=== PATIENT | male | born 1955 | race Caucasian/White ===

== ENCOUNTER 2019-03-28 12:33 | Day surgery (SDC) | payer OTHER, SELFPAY ==
--- NOTE | 2019-03-28 | PATH_ITS ---
[facility] Accession Number: [id number] . 01 Material submitted: . colon - POLYP AT 80CM . 01 Clinical history: . SCREENING COLONOSCOPY . 02 Diagnosis: Colon at 80 cm, Polyp: Colonic mucosa with no diagnostic abnormality, consistent with polypoid redundancy. Negative for serrated lesion, dysplasia or malignancy. Additional step sections examined. MRV 04/01/2019 1408 Local . 02 Electronically signed: . Maikel Bryan MD, PhD, Pathologist NPI- [id number] . 01 Gross description: . POLYP AT 80CM: Received in formalin is 1 fragment(s) of baird, soft tissue measuring 0.3 x 0.2 x 0.2 cm submitted entirely in 1 cassette(s) /QBJ 03/29/2019 0043 Local . 02 Pathologist provided ICD-10: K63.5 . 02 CPT . 731346 Performed at: 01 [facility] [address] [place] [address], [place], [place] [id number] MD Tyler Romano MD Phone: [phone] Performed at: 02 [facility] [address] [place], [place] [id number] MD Leila Redd MD Phone: [phone]
[2019-03-28 13:16] VITALS: BP 139/84; PULSE 101; RESP 16; TEMP 37.2; O2SAT 95; BMI 29.8
[2019-03-28] MEDS: SODIUM CHLORIDE 0.9% 1,000 ML 200 ML IV (13:23)
--- NOTE | 2019-03-28 13:46 | PM.HP.1 ---
History of Present Illness History of Present Illness Date Patient Seen: 03/28/19 Time Patient Seen: 13:53 Chief complaint: [id number] SCREENING COLONOSCOPY Narrative: Patient presents for colorectal screening. They has a prior colonoscopy 10 years ago which was normal.. No personal or family history of colon cancer. On further history denies any recent gastrointestinal symptoms. No nausea, vomiting, abdominal pain, loss of appetite, unexplained weight loss, change in bowel habits, diarrhea, constipation, melena, hematochezia, or bright red blood per rectum. Patient History Medical History (Updated 03/28/19 @ 13:56 by Jin Marino MD) HTN (hypertension) (Acute) Obstructive sleep apnea (Acute) Surgical History (Updated 03/28/19 @ 13:56 by Jin Marino MD) History of appendectomy (Acute) Family & Social History Social History: household members friend(s),none Meds Home Medications and Allergies Home Medications Medication Instructions Recorded Confirmed Type Fish Oil (Fish Oil 500 MG Softgel) 500 mg PO QDAY #0 12/10/12 03/28/19 History albuterol sulfate [Ventolin HFA] 2 puff INH PRN #0 12/10/12 03/28/19 History aspirin 81 mg PO QDAY #0 12/10/12 03/28/19 History fluticasone propion-salmeterol 1 puff INH BID #0 12/10/12 03/28/19 History [Advair Diskus] losartan 100 mg PO QDAY #0 12/10/12 03/28/19 History simvastatin [Zocor] 5 mg PO HS #0 12/10/12 03/28/19 History losartan-hydrochlorothiazide 1 tab PO DAILY 03/28/19 03/28/19 History Allergies Allergy/AdvReac Type Severity Reaction Status Date / Time No Known Drug Allergies Allergy Verified 03/28/19 13:05 Review of Systems Review of Systems ROS Unobtainable: All systems reviewed & are unremarkable except as noted in HPI and below Exam Vital Signs (past 8 hours): - 03/28/19 13:16 Temperature 99.0 F Pulse Rate 101 H Respiratory Rate 16 Blood Pressure 139/84 Pulse Oximetry 95 Oxygen Delivery Method Room Air Narrative Exam Narrative: General-no acute distress, well nourished HEENT-moist mucous membranes, no scleral icterus Neck-supple, no lymphadenopathy Chest- non labored respirations, clear to auscultation bilaterally Cardiac-regular rate no peripheral edema Abdomen-soft, nontender, non distended Extremities-warm, well perfused Neurological-alert and oriented, no focal deficits Assessment & Plan Assessment and plan (1) Screening for colon cancer: Current visit: Yes Status: Acute Assessment & Plan narrative: The patient requires colorectal screening and colonoscopy is recommended. Technical details were discussed. Risks, benefits, alternatives explained. Risks including but not limited to myocardial infarction, aspiration, bleeding, pain, missed lesion, incomplete examination, need for further radiographic studies, colonic perforation, and need for major abdominal surgery were discussed. All questions were answered to their satisfaction, and they are in agreement with this plan.
[2019-03-28] MEDS: fentaNYL 250 MCG/5 ML INJ IV (13:58)
[2019-03-28] MEDS: MIDAZOLAM 5 MG/5 ML VIAL IV (13:59)
--- NOTE | 2019-03-28 14:21 | PM.OP.ENDO ---
Operative Date/Time/Diagnoses Date of procedure: 03/28/19 Time of procedure: 14:21 Pre-op diagnosis: Screening colonoscopy Post-op diagnosis: same Procedure & Clinicians Study performed: Colonoscopy Same procedure as scheduled: Yes Indications: 63-year-old male prior colonoscopy 10 years ago presents for routine screening Surgeon: Jin Marino Procedure Notes SCOAP/Timeout: Performed Procedure in detail: Patient placed in left lateral decubitus position. Time out was performed. Procedural sedation was administered with Versed and Fentanyl. A rectal exam demonstrated no external hemorrhoids no internal masses. Colonoscopy scope was placed into the rectum and advanced through the colon to the cecum. The ileocecal valve was identified. The scope was then slowly withdrawn examining colon thoroughly in all directions. The colonoscopy was notable for the following 1. <1 cm hyperplastic appearing polyp in the transverse colon at 80 cm removed with forceps biopsy 2. Severe sigmoid diverticulosis 3. Quality of prep fair Scope withdrawal time: 7 Sedation minutes: 18 Findings: diverticulosis and polyp Specimen(s): other (Polyp at 80 cm) Complications: none Impression: Diverticulosis, polyp Post-procedure Recommendations: Colonscopy in 10 years Disposition: same day surgery
[2019-03-28 14:23] VITALS: BP 104/74; PULSE 74; RESP 18; TEMP 36.4; O2SAT 93
[2019-03-28 14:28] VITALS: BP 111/75; PULSE 87; RESP 17; O2SAT 95
[2019-03-28 14:33] VITALS: BP 116/76; PULSE 82; RESP 18; TEMP 36.4; O2SAT 95
[2019-03-28 14:42] VITALS: BP 122/79; PULSE 80; RESP 16; TEMP 36.3; O2SAT 95
== END 2019-03-28 14:54 | disposition home or self-care (01) ==
PROVIDERS: Family Provider Internal Medicine; PCP Internal Medicine; Visit Provider Surgery
PROC: 0DJD8ZZ Inspection of Lower Intestinal Tract, Via Natural or Artificial Opening Endoscopic (ICD-10-PCS; CPT 45378; principal; 2019-03-28 14:00)
DX: Z12.11 Encounter for screening for malignant neoplasm of colon (principal); I10 Essential (primary) hypertension; G47.33 Obstructive sleep apnea (adult) (pediatric); K57.30 Diverticulosis of large intestine without perforation or abscess without bleeding; K63.5 Polyp of colon
CPT/HCPCS: 45380; 99152; J2250; J3010

== ENCOUNTER 2023-02-22 08:49 | Observation (INO) | payer MEDICARE, OTHER, SELFPAY ==
[2023-02-22] VITALS (16 sets, daily range): BP systolic 120–149; BP diastolic 59–72; PULSE 54–76; RESP 12–21; TEMP 35.7–36.6; O2SAT 92–98; BMI 26.6
--- NOTE | 2023-02-22 | DI.MRI.S_ITS ---
PROCEDURE: MR HEAD/BRAIN WO CON INDICATIONS: slurred speech r/o CVA TECHNIQUE: Noncontrast axial T1 spin echo, axial T2 fast spin echo, sagittal and axial FLAIR, coronal T2 fast spin echo, axial gradient echo, axial diffusion and ADC through the brain. COMPARISON: [facility], CT, CT ANGIO HEAD AND NECK, 02/22/2023, 9:56. [facility], CT, CT HEAD/BRAIN WO CON, 02/22/2023, 9:56. FINDINGS: Image quality: Excellent. CSF Spaces: Basal cisterns are patent. No extra-axial fluid collections. Ventricles are normal in size and shape. Brain: No intracranial masses or hemorrhage. Blake/white matter interface is normal. Brainstem appears normal. Diffusion-weighted images demonstrate no acute ischemic insult. No chronic ischemic insults. Normal intravascular flow voids are present. Skull and face: Calvarium has normal marrow signal. Orbits appear normal. Sinuses: There is complete opacification of left maxillary sinus and mucous retention cyst versus polyp in the right maxillary sinus. Scattered ethmoid mucosal thickening. IMPRESSION: 1. No acute intracranial process. No acute ischemia. Dictated by: Joan Sorensen M.D. on 02/22/2023 at 15:54 Approved by: Joan Sorensen M.D. on 02/22/2023 at 15:55
[2023-02-22 09:13] LABS: Add Manual Diff / Slide Review NO; Basophils Absolute Auto 0 /uL (0-100); Basophils Percent Auto 0.5 % (0-2); Eosinophils Absolute Auto 0 /uL (0-450); Eosinophils Percent Auto 0.3 % (2-4); Hematocrit 39.9 % (41-53); Hemoglobin 13.9 g/dL (13.5-17.5); Lymphocytes Absolute Auto 1000 /uL (1100-4500); Lymphocytes Percent Auto 12.3 % (25-40); Mean Corpuscular HGB Conc 34.9 % (30-36); Mean Corpuscular Hemoglobin 32.6 PG (26-34); Mean Corpuscular Volume 93.2 fL (80-100); Monocytes Absolute Auto 500 /uL (0-900); Monocytes Percent Auto 5.5 % (3-14); Neutrophils Absolute Auto 6800 /uL (1500-7000); Neutrophils Percent Auto 81.4 % (50-75); Platelet Count 291 X10^3/uL (150-400); Red Blood Cell Count 4.28 X10^6/uL (4.5-5.9); Red Cell Distribution Width 12.7 % (11.6-14.8); White Blood Cell Count 8.3 X10^3/uL (4.5-11.0)
--- NOTE | 2023-02-22 09:17 | ED_ITS ---
HPI - General Adult General Chief complaint: Neuro Symptoms/Deficit Stated complaint: gait issues Time Seen by Provider: 02/22/23 08:50 Source: patient, family and EMS Mode of arrival: EMS Limitations: no limitations History of Present Illness HPI narrative: Patient is a 67-year-old male who is brought in by EMS for evaluation of ?gait issues? and slurring of his words. Symptoms started approximately midnight last night. He was sitting on the couch watching TV at the time. He did state that he ate some THC edibles. This is not an uncommon occurrence for him. He did not take more than what he normally does. He denied any chest pain or shortness of breath or lightheadedness or abdominal pain with nausea and vomiting. He called his daughter last night to state that he felt like he was feeling very unsteady and slurring his words. His daughter thought that maybe it was just the THC so she told him just to sleep it off however this morning the symptoms have persisted. Not worse this morning. Potentially somewhat better. No headache. Related Data Home Medications Medication Instructions Recorded Confirmed Fish Oil (Fish Oil 500 MG Softgel) 500 mg PO QDAY ##0 12/10/12 03/28/19 albuterol sulfate 90 mcg/actuation 2 puff INH PRN ##0 12/10/12 03/28/19 aerosol inhaler (Ventolin HFA) aspirin 81 mg chewable tablet 81 mg PO QDAY ##0 12/10/12 03/28/19 fluticasone 250 mcg-salmeterol 50 1 puff INH BID ##0 12/10/12 03/28/19 mcg/dose blistr powdr for inhalation (Advair Diskus) losartan 100 mg tablet 100 mg PO QDAY ##0 12/10/12 03/28/19 simvastatin 5 mg tablet (Zocor) 5 mg PO HS ##0 12/10/12 03/28/19 losartan 100 1 tab PO DAILY 03/28/19 03/28/19 mg-hydrochlorothiazide 25 mg tablet Allergies Allergy/AdvReac Type Severity Reaction Status Date / Time No Known Drug Allergies Allergy Verified 03/28/19 13:05 Review of Systems Review of Systems ROS Unobtainable: All systems reviewed & are unremarkable except as noted in HPI and below Patient History Medical History HTN (hypertension) Obstructive sleep apnea Surgical History (Updated 03/28/19 @ 13:56 by Jin Marino MD) History of appendectomy Social History household members: friend(s) and none Smoking Status: Never smoker Exam Initial Vital Signs Initial Vital Signs: Vital Signs Pulse Rate 64 02/22/23 08:53 Blood Pressure 130/69 02/22/23 08:53 Pulse Oximetry 92 02/22/23 08:53 Const General: cooperative, comfortable and No ill appearing HENMT Head: normal to inspection and normocephalic Resp Effort & Inspection: normal respiratory effort Auscultation: clear to auscultation bilaterally Cardio Rate: bradycardic Rhythm: regular rhythm GI Inspection: normal to inspection Skin General: no rashes or lesions noted Neuro General: patient alert, patient awake, patient oriented x3 and moves all extremities Speech: abnormal speech Extrem General: normal to inspection and capillary refill normal Scores GCS [place] coma scale eye opening: Spontaneous [place] coma scale verbal response: Orientated [place] coma scale motor response: Obey commands Luis[place] coma scale total score: 15 NIH Stroke Scale Level of Conciousness: Alert, keenly responsive Ask month/age: Answers both questions correctly. Open/close eyes, close hand: Performs both tasks correctly Best gaze horizontal: Normal Visual savage: No visual loss Facial palsy: Normal symetrical movement Left arm drift: No drift for full 10 sec Right arm drift: No drift for full 10 sec Left leg drift: No drift for full 5 sec Right leg drift: No drift for full 5 sec Limb ataxia: Absent Sensory on face/arms/legs: Normal, no sensory loss Best language: Mild to moderate, slurs some words Dysarthria: Mild to mod,some slurring Extinction or inattention: No abnormality Total NIH Stroke scale score: 2 Course Orders Ordered: ED Orders 02/22/23 09:00 Complete Blood Count AUTO DIFF Stat Covid-19 + FLU A/B + RSV - PCR Stat 02/22/23 09:06 EKG-12 Lead Stat 02/22/23 09:15 CT head/brain wo con Stat 02/22/23 09:21 Comprehensive Metabolic Panel Stat Ethanol (ETOH) Stat Lipase Stat 02/22/23 09:55 CT angio head and neck Stat 02/22/23 11:52 Magnesium Urgent 02/22/23 11:55 Hemoglobin A1C% w Est Avg Glu Routine Lipid Panel Routine TSH w/ Reflex to FT4 Routine Acetaminophen (Acetaminophen 325 Mg Tablet) 650 mg PO Q6H PRN PRN Reason: Fever/Mild Pain (1-3) Naloxone HCl (Naloxone 0.4 Mg/Ml Vial) 0.2 mg IV Q2MIN PRN PRN Reason: Opiate Reversal Ondansetron HCl (Ondansetron 4 Mg Odt) 4 mg PO Q8HR PRN PRN Reason: Nausea And Vomiting Discontinued Medications Aspirin (Aspirin 81 Mg Chew Tab) 324 mg PO NOW ONE Stop: 02/22/23 11:54 Atorvastatin Calcium (Atorvastatin 20 Mg Tablet) 80 mg PO NOW ONE Stop: 02/22/23 11:55 Vital Signs Vital signs: Vital Signs - 8 hr 02/22/23 08:53 02/22/23 08:53 02/22/23 09:00 Temperature Pulse Rate 64 Respiratory Rate Blood Pressure 130/69 129/71 Pulse Oximetry 92 Oxygen Delivery Method 02/22/23 09:00 02/22/23 09:06 02/22/23 09:30 Temperature 96.2 F L Pulse Rate 60 62 Respiratory Rate 16 14 Blood Pressure 130/69 120/68 Pulse Oximetry 95 95 Oxygen Delivery Method Room Air 02/22/23 09:30 02/22/23 10:05 02/22/23 10:06 Temperature Pulse Rate 58 L 60 58 L Respiratory Rate 15 21 Blood Pressure Pulse Oximetry 96 95 98 Oxygen Delivery Method 02/22/23 10:06 02/22/23 10:30 02/22/23 10:30 Temperature Pulse Rate 59 L Respiratory Rate 17 Blood Pressure 130/63 135/69 Pulse Oximetry 96 Oxygen Delivery Method Medical Decision Making Lab Data Lab results reviewed: Yes I reviewed the patient's lab results. 02/22/23 09:00 02/22/23 09:21 Labs: Lab Results 02/22/23 02/22/23 Range/Units 09:00 09:21 WBC 8.3 (4.5-11.0) X10^3/uL RBC 4.28 L (4.5-5.9) X10^6/uL Hgb 13.9 (13.5-17.5) g/dL Hct 39.9 L (41-53) % MCV 93.2 (80-100) fL MCH 32.6 (26-34) PG MCHC 34.9 (30-36) % RDW 12.7 (11.6-14.8) % Plt Count 291 (150-400) X10^3/uL Neut % (Auto) 81.4 H (50-75) % Lymph % (Auto) 12.3 L (25-40) % Mccormick % (Auto) 5.5 (3-14) % Eos % (Auto) 0.3 L (2-4) % Baso % (Auto) 0.5 (0-2) % Neut # (Auto) 6800 (9849-5127) /uL Lymph # (Auto) 1000 L (1536-6600) /uL Mccormick # (Auto) 500 (0-900) /uL Eos # (Auto) 0 (0-450) /uL Baso # (Auto) 0 (0-100) /uL Sodium 132 L (137-145) mmol/L Potassium 3.8 (3.4-5.1) mmol/L Chloride 98 (98-107) mmol/L Carbon Dioxide 27 (22-32) mmol/L BUN 14 (9-20) mg/dL Creatinine 0.58 L (0.66-1.25) mg/dL Estimated GFR > 60 (>60) mL/min BUN/Creatinine Ratio 24.1 H (6-22) Glucose 147 H (80-110) mg/dL Calcium 9.3 (8.4-10.2) mg/dL Total Bilirubin 0.7 (0.2-1.3) mg/dL AST 26 (17-59) IU/L ALT 24 (<50) IU/L Alkaline Phosphatase 67 (38-126) U/L Total Protein 6.7 (6.3-8.2) g/dL Albumin 4.0 (3.5-5.0) g/dL Globulin 2.7 (1.7-4.1) g/dL Albumin/Globulin Ratio 1.5 (1.0-2.8) Lipase 31 (23-300) U/L Ethyl Alcohol < 10 ( - 10) mg/dL SARS-CoV-2 (PCR) Negative (Negative) Influenza A (RT-PCR) Flu a negative (NEGATIVE) Influenza B (RT-PCR) Flu b negative (NEGATIVE) RSV (PCR) Negative (Negative) Imaging Data CT scan - head: Radiologist's Impression: PROCEDURE: CT HEAD/BRAIN WO CON INDICATIONS: Dysarthria TECHNIQUE: Noncontrast 4.5 mm thick angled axial sections acquired from the foramen magnum to the vertex, with coronal and sagittal reformats. For radiation dose reduction, the following was used: automated exposure control, adjustment of mA and/or kV according to patient size. COMPARISON: None. FINDINGS: Image quality: Excellent. CSF spaces: Basal cisterns are patent. No extra-axial fluid collections. Ventricles are normal in size and shape. Brain: No midline shift. No intracranial masses or hemorrhage. Blake-white matter interface is normal. Skull and face: Calvarium and visualized facial bones are intact, without suspicious lesions. Sinuses: There is occlusion of the left maxillary sinus with mucous retention cyst versus polyp on the right. IMPRESSION: 1. No acute intracranial process. CTA - brain/neck: Radiologist's Impression: PROCEDURE: CT ANGIO HEAD AND NECK INDICATIONS: Dysarthria TECHNIQUE: After the administration of intravenous contrast, 1 mm thick sections acquired from the aortic arch through the [place]. 3-dimensional ulrlpjy-flasmnxnw-pdfbvfvqwn (MIP) and/or volume rendering reformats were acquired of the central intracranial vasculature and neck separately. For radiation dose reduction, the following was used: automated exposure control, adjustment of mA and/or kV according to patient size. COMPARISON: [facility], CT, CT HEAD/BRAIN WO CON, 02/22/2023, 9:56. FINDINGS: Image quality: Diagnostic. BRAIN: Please see separately dictated CT head report 02/22/2023. HEAD CT ANGIOGRAPHY: Anterior circulation: Intracranial internal carotid arteries are normal in size and flow. The flow within the paired anterior cerebral arteries is normal and symmetric. The flow within the middle cerebral arteries is normal and symmetric. The anterior communicating artery is seen. No aneurysms are seen. Posterior circulation: There is a left vertebral artery dominance. Visualized portions of the vertebral arteries demonstrate normal caliber, and join to form a normal appearing basilar artery. Flow within the posterior cerebral arteries is normal and symmetric. No aneurysms are seen. NECK CT ANGIOGRAPHY: Carotid system: The great vessels demonstrate a conventional anatomy as they arise from the aortic arch. The origins of the common carotid arteries appear patent. The common carotid arteries demonstrate normal caliber and courses. The bifurcation regions are both widely patent. The internal carotid arteries demonstrate normal calibers and courses. Posterior circulation: Less than 50% narrowing is present at the origin of the right vertebral artery.. The more superior extracranial portions of both vertebral arteries also demonstrate normal courses and calibers. They join to form a normal appearing basilar artery. Soft tissues: Visualized neck soft tissues demonstrate no suspicious abnormalities. There is complete occlusion of the left maxillary sinus with mucous retention cyst versus polyp in the right maxillary sinus. Bones: No suspicious bony lesions. Visualized cervical spine appears normally aligned. IMPRESSION: No areas of hemodynamically significant stenosis, vascular occlusion or aneurysmal dilation within the anterior circulation. No areas of hemodynamically significant stenosis, vascular occlusion or aneurysmal dilation within the posterior circulation. Less than 50% stenosis noted the origin of the right vertebral artery. No areas of hemodynamically significant stenosis, vascular occlusion or aneurysmal dilation within the neck vasculature. Any quantitative measurements of stenosis were performed using NASCET criteria. ECG Data Attestation: I personally reviewed and interpreted this ECG as follows: Interpretation: Sinus bradycardia Ventricular rate of 56 Normal axis Normal QRS No ST T wave changes MDM Narrative Medical decision making narrative: Patient presents greater than 4-1/2 hours after the onset of his symptoms. NIH score of 2. This is verbal difficulties. No other neurologic symptoms. CT scan of head and CTA of head and neck shows no large vessel occlusion or intracranial hemorrhage. Patient states that the THC edible that he took last night is not any different than what he normally takes and he does this fairly often. I do feel the patient needs admission to the hospital for further evaluation of his symptoms. Discussed the case with Dr. Jesus on-call for Internal Medicine who will admit for further evaluation and treatment. Patient expressed understanding and agreement as well. Discharge Plan Departure Patient Disposition: Admitted as Observation Clinical Impression: Cerebrovascular accident, Dysarthria Admit Date/Time: 02/22/23 12:02
[2023-02-22 09:45] LABS: Influenza A - CEPHEID Flu A NEGATIVE (NEGATIVE); Influenza B - CEPHEID Flu B NEGATIVE (NEGATIVE); Respiratory Syncytial Virus Negative (Negative)
[2023-02-22 09:47] LABS: COVID-19 CEPHEID 4-PLEX PCR Negative (Negative)
[2023-02-22 09:49] LABS: Alanine Aminotransferase 24 IU/L (<50); Albumin Globulin Ratio 1.5 (1.0-2.8); Alkaline Phosphatase 67 U/L (38-126); Aspartate Aminotransferase 26 IU/L (17-59); BUN Creatinine Ratio 24.1 (6-22); Bilirubin Total 0.7 mg/dL (0.2-1.3); Blood Urea Nitrogen 14 mg/dL (9-20); Calcium 9.3 mg/dL (8.4-10.2); Carbon Dioxide 27 mmol/L (22-32); Chloride 98 mmol/L (98-107); Estimated Glomerular Filt Rate > 60 mL/min (>60); Ethanol (ETOH) < 10 mg/dL; Globulin 2.7 g/dL (1.7-4.1); Glucose 147 mg/dL (80-110); HEMOLYSIS < 15 (0-50); Lipase 31 U/L (23-300); Potassium 3.8 mmol/L (3.4-5.1); Sodium 132 mmol/L (137-145); Total Protein 6.7 g/dL (6.3-8.2)
--- NOTE | 2023-02-22 09:55 | DI.CT.S_ITS ---
PROCEDURE: CT ANGIO HEAD AND NECK INDICATIONS: Dysarthria TECHNIQUE: After the administration of intravenous contrast, 1 mm thick sections acquired from the aortic arch through the [place]. 3-dimensional ohivady-xjtfctkpc-ngbejaxjgb (MIP) and/or volume rendering reformats were acquired of the central intracranial vasculature and neck separately. For radiation dose reduction, the following was used: automated exposure control, adjustment of mA and/or kV according to patient size. COMPARISON: [facility], CT, CT HEAD/BRAIN WO CON, 02/22/2023, 9:56. FINDINGS: Image quality: Diagnostic. BRAIN: Please see separately dictated CT head report 02/22/2023. HEAD CT ANGIOGRAPHY: Anterior circulation: Intracranial internal carotid arteries are normal in size and flow. The flow within the paired anterior cerebral arteries is normal and symmetric. The flow within the middle cerebral arteries is normal and symmetric. The anterior communicating artery is seen. No aneurysms are seen. Posterior circulation: There is a left vertebral artery dominance. Visualized portions of the vertebral arteries demonstrate normal caliber, and join to form a normal appearing basilar artery. Flow within the posterior cerebral arteries is normal and symmetric. No aneurysms are seen. NECK CT ANGIOGRAPHY: Carotid system: The great vessels demonstrate a conventional anatomy as they arise from the aortic arch. The origins of the common carotid arteries appear patent. The common carotid arteries demonstrate normal caliber and courses. The bifurcation regions are both widely patent. The internal carotid arteries demonstrate normal calibers and courses. Posterior circulation: Less than 50% narrowing is present at the origin of the right vertebral artery.. The more superior extracranial portions of both vertebral arteries also demonstrate normal courses and calibers. They join to form a normal appearing basilar artery. Soft tissues: Visualized neck soft tissues demonstrate no suspicious abnormalities. There is complete occlusion of the left maxillary sinus with mucous retention cyst versus polyp in the right maxillary sinus. Bones: No suspicious bony lesions. Visualized cervical spine appears normally aligned. IMPRESSION: No areas of hemodynamically significant stenosis, vascular occlusion or aneurysmal dilation within the anterior circulation. No areas of hemodynamically significant stenosis, vascular occlusion or aneurysmal dilation within the posterior circulation. Less than 50% stenosis noted the origin of the right vertebral artery. No areas of hemodynamically significant stenosis, vascular occlusion or aneurysmal dilation within the neck vasculature. Any quantitative measurements of stenosis were performed using NASCET criteria. Dictated by: Joan Sorensen M.D. on 02/22/2023 at 10:59 Approved by: Joan Sorensen M.D. on 02/22/2023 at 11:09
[2023-02-22] MEDS: ATORVASTATIN 20 MG TABLET 80 MG PO (12:15)
[2023-02-22] MEDS: ASPIRIN 81 MG CHEW TAB 324 MG PO (12:15)
[2023-02-22 12:18] LABS: Magnesium 2.1 mg/dL (1.6-2.3)
--- NOTE | 2023-02-22 13:27 | DI.ECHO.S_ITS ---
[facility] +---------+ : : [address] : [address] : : : : [id number] : : : : Phone: [phone]+ Echocardiogram Report + + :Name: RICKY SHETTY Study Date: 02/23/2023 Height: 76 in : :[facility] ReadingLocation: Weight: 219 lb : : Gender: Male BSA: 2.3 m2 : :: 1955 Age: 67 yrs BP: 128/59 mmHg: :Reason For Study: CVA : :Ordering Physician: EMMANUEL, : :EROS MATTA Performed By: Janine Lora : :Referring: EROS BENITEZ : + + Interpretation Summary 1) Normal left ventricular thickness, size, wall motion, and systolic function (EF 60-65%). 2) Normal right ventricular size and function. 3) No significant valvular abnormalities. 4) Injection of contrast documented no interatrial shunt. 5) No prior Echo available for comparison. Procedure: A two-dimensional transthoracic echocardiogram with color flow and Doppler was performed. The study quality was technically adequate. There is no prior echocardiogram noted for this patient. A saline contrast injection was performed to assess for cardiac shunting. The patient was in sinus bradycardia with heart rates between 47-56 bpm during the exam. Left Ventricle: The left ventricle is normal in size and wall thickness. The ejection fraction is estimated to be 60-65%. Left ventricular systolic function appears normal without focal wall motion abnormalities. Right Ventricle: The right ventricle is normal in size and function. Atria: The left atrial size is normal. Right atrial size is normal. There is no Doppler evidence for an interatrial shunt. Injection of contrast documented no interatrial shunt. Mitral Valve: The mitral valve is normal in structure and function. There is mild mitral regurgitation. Aortic Valve: The aortic valve is trileaflet. The aortic valve is slightly calcified. There is no aortic valve stenosis. There is trace aortic regurgitation. Tricuspid Valve: The tricuspid valve is normal in structure and function. There is mild tricuspid regurgitation. The right ventricular systolic pressure is estimated to be at least 31 mmHg based on an estimated right atrial pressure of 3 mm Hg. Pulmonic Valve: The pulmonic valve leaflets are thin and pliable; valve motion is normal. There is mild pulmonic regurgitation. Great Vessels: The aortic root is normal size. The ascending aorta is at the upper limits of normal in size. The IVC is of normal diameter and collapses greater than 50% with a sniff. This suggests a low right atrial pressure of 3 mm Hg. Pericardium/ Pleura There is no pericardial effusion. There is no pleural effusion. MMode/2D Measurements & Calculations LVIDd: 4.1 cm LVOT diam: 2.0 cm LVIDs: 2.5 cm Ao root diam: 3.5 cm FS: 38.3 % asc Aorta Diam: 4.0 cm IVSd: 1.2 cm Ao Arch Diam (Prox Trans): 3.5 cm LVPWd: 1.1 cm LV vidal. diameter/BSA (cm/m^2): 1.8 LV sys. diameter/BSA (cm/m^2): 1.1 LA A2 area: 20.8 cm2 RA long axis: 6.0 cm LA A4 area: 18.2 cm2 RA area: 22.3 cm2 LA length (vol): 5.1 cm RA vol: 70.4 ml LA vol: 63.5 ml RA : 30.6 ml/m2 LA vol index: 27.6 ml/m2 IVC diam: 1.6 cm RVD1 (basal): 3.8 cm RVD2 (mid): 3.3 cm TAPSE: 2.1 cm Doppler Measurements & Calculations Ao V2 max: 156.8 cm/sec LVOT Max Wilmer: 130.6 cm/sec Ao V2 mean: 109.1 cm/sec LV V1 max P.8 mmHg Ao max P.8 mmHg LV V1 VTI: 28.9 cm Ao mean P.3 mmHg AMBER(I,D): 2.7 cm2 Ao V2 VTI: 35.3 cm AMBER(V,D): 2.7 cm2 sev ratio: 0.82 AMBER indexed to BSA (cm^2/m^2): 1.2 MV E max wilmer: 71.4 cm/sec TR max wilmer: 263.6 cm/sec MV A max wilmer: 46.0 cm/sec TR max P.8 mmHg MV E/A: 1.6 PA V2 max: 84.2 cm/sec Med Peak E' Wilmer: 7.0 cm/sec PA V2 mean: 55.1 cm/sec E/E' med: 10.1 PA mean P.4 mmHg Lat Peak E' Wilmer: 8.9 cm/sec PA pr(Accel): 39.6 mmHg E/E' lat: 8.1 E/e' average: 9.1 MV dec time: 0.26 sec SV(LVOT): 94.3 ml Reading Physician:10:15 AM
[2023-02-22 14:30] LABS: Cholesterol 131 mg/dL (140-199); HDL Cholesterol 59 mg/dL (40-60); LDL Cholesterol Calculated 62 mg/dL (<100); Triglycerides 48 mg/dL (35-150)
[2023-02-22 14:33] LABS: Hemoglobin A1C% w Est Avg Glu 5.7 % (4.0-6.0)
--- NOTE | 2023-02-22 16:33 | PM.HP.1 ---
History of Present Illness History of Present Illness Date Patient Seen: 02/22/23 Time Patient Seen: 16:33 Chief complaint: gait issues Narrative: This is a 67 M with PMH of HTN, COPD, DAWIT who presented to the emergency room with lethargy, confusion, and slurred speech. Per his daughter, he called yesterday evening after taking a THC edible and sounded very off. His speech was slurred but she presumed it due to the edible. She checked in with him at 0700 this AM and he was still lethargic, with slurred speech. She did not notice weakness, numbness or facial droop. He is slowly improving according to daughter, but still remains lethargic and not his usual self. In the emergency room his vital signs were unremarkable, initial laboratory evaluation showed unremarkable CBC, chemistries showed a mild hyperemia with a sodium of 132 is otherwise unremarkable. A1c was 5.7%. CT and CTA were unremarkable. MRI performed already and was negative for acute ischemic infarcts. Ammonia was ordered and was negative. He was admitted for further evaluation. [facility] Medical History COPD (chronic obstructive pulmonary disease) HTN (hypertension) Obstructive sleep apnea Surgical History History of appendectomy Social History household members: friend(s) and none Smoking Status: Never smoker alcohol intake: current Meds Home Medications and Allergies Home Medications Medication Instructions Recorded Confirmed Type Fish Oil (Fish Oil 500 MG Softgel) 500 mg PO QDAY ##0 12/10/12 02/22/23 History aspirin 81 mg chewable tablet 81 mg PO QDAY ##0 12/10/12 02/22/23 History fluticasone 250 mcg-salmeterol 50 1 puff INH BID ##0 12/10/12 02/22/23 History mcg/dose blistr powdr for inhalation (Advair Diskus) losartan 100 mg tablet 100 mg PO QDAY ##0 12/10/12 02/22/23 History simvastatin 5 mg tablet (Zocor) 5 mg PO HS ##0 12/10/12 02/22/23 History hydrochlorothiazide 25 mg tablet 25 mg PO DAILY 02/22/23 02/22/23 History nifedipine 90 mg tablet,extended 90 mg PO DAILY 02/22/23 02/22/23 History release sildenafil 100 mg tablet 100 mg PO DAILY 02/22/23 02/22/23 History tiotropium bromide 2.5 2 puff inhalation DAILY 02/22/23 02/22/23 History mcg/actuation mist for inhalation (Spiriva Respimat) Allergies Allergy/AdvReac Type Severity Reaction Status Date / Time No Known Drug Allergies Allergy Verified 03/28/19 13:05 Review of Systems Review of Systems Narrative: All other systems reviewed with the patient and are negative unless otherwise stated. Exam Vital Signs (past 8 hours): - 02/22/23 08:53 02/22/23 08:53 02/22/23 09:00 Temperature Pulse Rate 64 Respiratory Rate Blood Pressure 130/69 129/71 Pulse Oximetry 92 Oxygen Delivery Method Oxygen Flow Rate 02/22/23 09:00 02/22/23 09:06 02/22/23 09:30 Temperature 96.2 F L Pulse Rate 60 62 Respiratory Rate 16 14 Blood Pressure 130/69 120/68 Pulse Oximetry 95 95 Oxygen Delivery Method Room Air Oxygen Flow Rate 02/22/23 09:30 02/22/23 10:05 02/22/23 10:06 Temperature Pulse Rate 58 L 60 58 L Respiratory Rate 15 21 Blood Pressure Pulse Oximetry 96 95 98 Oxygen Delivery Method Oxygen Flow Rate 02/22/23 10:06 02/22/23 10:30 02/22/23 10:30 Temperature Pulse Rate 59 L Respiratory Rate 17 Blood Pressure 130/63 135/69 Pulse Oximetry 96 Oxygen Delivery Method Oxygen Flow Rate 02/22/23 11:00 02/22/23 11:00 02/22/23 11:30 Temperature Pulse Rate 58 L 76 Respiratory Rate 13 19 Blood Pressure 127/66 Pulse Oximetry 97 96 Oxygen Delivery Method Oxygen Flow Rate 02/22/23 11:31 02/22/23 11:31 02/22/23 12:00 Temperature Pulse Rate 64 66 Respiratory Rate 13 12 Blood Pressure 147/69 H Pulse Oximetry 98 95 Oxygen Delivery Method Oxygen Flow Rate 02/22/23 12:00 02/22/23 13:50 02/22/23 14:01 Temperature 97.2 F L Pulse Rate 69 Respiratory Rate 18 Blood Pressure 128/59 L 149/72 H Pulse Oximetry 95 Oxygen Delivery Method Room Air Oxygen Flow Rate 0 Oxygen Delivery Method Room Air Oxygen Flow Rate 0 Narrative Exam Narrative: General:? Patient is well developed and well nourished, in no distress at this time. HEENT:? Normocephalic, atraumatic, extraocular muscles intact, oral pharynx is clear and mucous membranes are moist. Neck: supple and symmetric, trachea is midline, no cervical adenopathy. Negative for JVD Chest:? Normal AP diameter and contour without kyphoscoliosis, no tachypnea, equal chest rise bilaterally. Lungs:? CTA b/l no wheezing rhonchi or rales. Cardio:?RRR no m/r/g. Abdomen: S NT ND. No CVA tenderness. Musculoskeletal:? Muscle strength and tone are equal within normal limits, no deformity. Extremities: No edema or joint effusions. No cyanosis or clubbing. Skin:? Pale,? Warm to touch,dry and intact without rashes, ulcerations or petechiae.? Neuro:? Alert and orientated x3,? sensation to touch intact in all extremities, no gross deficits noted of cranial nerves. Psych:? Patient has a well-kept appearance, appropriate affect, mental status attitude thought context and judgment are appropriate for age. Objective ECG Impression: Sinus bradycardia with rate of 56. No acute ischemia. Labs 02/22/23 09:00 02/22/23 09:21 Labs: Laboratory Results - last 24 hr 02/22/23 02/22/23 09:00 09:21 WBC 8.3 RBC 4.28 L Hgb 13.9 Hct 39.9 L MCV 93.2 MCH 32.6 MCHC 34.9 RDW 12.7 Plt Count 291 Neut % (Auto) 81.4 H Lymph % (Auto) 12.3 L [place] % (Auto) 5.5 Eos % (Auto) 0.3 L Baso % (Auto) 0.5 Neut # (Auto) 6800 Lymph # (Auto) 1000 L [place] # (Auto) 500 Eos # (Auto) 0 Baso # (Auto) 0 Sodium 132 L Potassium 3.8 Chloride 98 Carbon Dioxide 27 BUN 14 Creatinine 0.58 L Estimated GFR > 60 BUN/Creatinine Ratio 24.1 H Glucose 147 H Hemoglobin A1c 5.7 Calcium 9.3 Magnesium 2.1 Total Bilirubin 0.7 AST 26 ALT 24 Alkaline Phosphatase 67 Total Protein 6.7 Albumin 4.0 Globulin 2.7 Albumin/Globulin Ratio 1.5 Triglycerides 48 Cholesterol 131 L LDL Cholesterol, Calc 62 HDL Cholesterol 59 Lipase 31 Ethyl Alcohol < 10 SARS-CoV-2 (PCR) Negative Influenza A (RT-PCR) Flu a negative Influenza B (RT-PCR) Flu b negative RSV (PCR) Negative Assessment & Plan Assessment & Plan narrative: 1. Acute toxic and/or metabolic encephalopathy - MR negative for acute ischemia, history more consistent with a toxic or metabolic etiology - ingested unknown edible with THC yesterday evening, continue to monitor - continue home asa and statin though TIA is considered less likely. - A1c, TSH, lipid panel ordered - Alcohol level negative. - Check CO2 level with VBG given COPD history as could be consistent with hypercapnea though chemistry bicarb is only 27. - PT/OT ordered for further evaluation. 2.COPD without exacerbation -replace home inhalers with nebulizers, pulmicort and duonebs ordered, along with as needed albuterol. 3. HTN - continue home medications, nifedipine, HCTZ, losartan. 4. HLD - continue home simvastatin 5 mg nightly. Lipid panel is unremarkable. Code: Full, surrogate is patient's spouse DVT: Low risk Dispo: admitted observation. Etiology for his encephlopathy is likely toxic, but pending above metabolic evaluation, mainly waiting for blood gas. I have utilized all available immediate resources to obtain, update, or review the patient's current medications. Quality VTE Deep Vein Thrombosis/Pulmonary Embolism Present on Admission: No
[2023-02-22 17:17] LABS: Ammonia (NH3) < 9 umol/L (9-30)
[2023-02-22 17:56] LABS: Appearance Urine UA CLEAR; Bilirubin Urine UA NEGATIVE (NEGATIVE); Color Urine UA YELLOW; Glucose Urine UA NEGATIVE (Negative); Ketones Urine UA NEGATIVE (NEGATIVE); Leukocyte Esterase Urine UA NEGATIVE (NEGATIVE); Nitrite Urine UA NEGATIVE (Negative); Occult Blood Urine UA NEGATIVE (Negative); Protein Urine UA NEGATIVE (Negative); Specific Gravity Urine UA <=1.005 (1.000-1.035); Urobilinogen Urine UA 0.2 E.U./dL (0.2); pH Urine UA 6.5 (4.5-8.0)
[2023-02-22 18:05] LABS: Bacteria Urine None Seen; Culture Indicated Urine Cult Not Indicated; RBC Urine None Seen (0-5/HPF); Squamous Epithelial Cell Urine None Seen (0-5/HPF); WBC Urine None Seen (0-5/HPF)
[2023-02-22] MEDS: ALBUTEROL/IPRATROPIUM 3 ML AMPUL INH (20:31)
[2023-02-22] MEDS: BUDESONIDE 0.5 MG/2 ML NEB INH (20:32)
[2023-02-22] MEDS: ATORVASTATIN 20 MG TABLET 10 MG PO (20:54)
[2023-02-23] VITALS (7 sets, daily range): BP systolic 111–136; BP diastolic 52–79; PULSE 54–63; RESP 14–18; TEMP 36–36.6; O2SAT 95–98
--- NOTE | 2023-02-23 00:30 | PC.NURSE ---
Heart rate is running in the 40's- 50's. Patient asymptomatic, all other VS WNL. Notified hospitalist, Dr. Buchanan, he said, ok monitor and review with day team.
[2023-02-23 02:13] LABS: Fractionated Inspired Oxygen 21; HCO3 VBG 29 mmol/L (24-28); Oxygen Saturation VBG 71 % (70-75); PCO2 VBG 49.7 mmHg (45-50); PO2 VBG 39 mmHg (35-45); Total CO2 VBG 31 mmol/L (24-29); pH VBG 7.37 (7.33-7.43)
[2023-02-23 05:37] LABS: Add Manual Diff / Slide Review NO; Basophils Absolute Auto 0 /uL (0-100); Basophils Percent Auto 0.5 % (0-2); Eosinophils Absolute Auto 200 /uL (0-450); Eosinophils Percent Auto 3.4 % (2-4); Hemoglobin 13.3 g/dL (13.5-17.5); Lymphocytes Absolute Auto 1700 /uL (1100-4500); Lymphocytes Percent Auto 30.3 % (25-40); Mean Corpuscular HGB Conc 34.9 % (30-36); Mean Corpuscular Hemoglobin 32.7 PG (26-34); Mean Corpuscular Volume 93.7 fL (80-100); Monocytes Absolute Auto 500 /uL (0-900); Monocytes Percent Auto 8.2 % (3-14); Neutrophils Absolute Auto 3300 /uL (1500-7000); Neutrophils Percent Auto 57.6 % (50-75); Platelet Count 263 X10^3/uL (150-400); Red Blood Cell Count 4.06 X10^6/uL (4.5-5.9); White Blood Cell Count 5.7 X10^3/uL (4.5-11.0)
[2023-02-23 05:46] LABS: BUN Creatinine Ratio 13.5 (6-22); Blood Urea Nitrogen 10 mg/dL (9-20); Calcium 9.3 mg/dL (8.4-10.2); Carbon Dioxide 28 mmol/L (22-32); Chloride 102 mmol/L (98-107); Estimated Glomerular Filt Rate > 60 mL/min (>60); Glucose 93 mg/dL (80-110); HEMOLYSIS < 15 (0-50); Magnesium 2.1 mg/dL (1.6-2.3); Potassium 3.9 mmol/L (3.4-5.1); Sodium 136 mmol/L (137-145)
[2023-02-23 06:30] LABS: TSH w/ Reflex to FT4 0.94 uIU/mL (0.47-4.68)
[2023-02-23] MEDS: ALBUTEROL/IPRATROPIUM 3 ML AMPUL INH (09:17)
[2023-02-23] MEDS: BUDESONIDE 0.5 MG/2 ML NEB INH (09:17)
--- NOTE | 2023-02-23 09:19 | PT.IIE ---
Surgical History (Last Reviewed 02/22/23 @ 16:34 by Yair Jesus DO) History of appendectomy Medical History (Last Reviewed 02/22/23 @ 16:34 by Yair Jesus DO) COPD (chronic obstructive pulmonary disease) HTN (hypertension) Obstructive sleep apnea Physical Therapy Inpatient Evaluation/Re-Eval M1 PT/OT-IP Prior Functional Status Start: 02/23/23 09:22 Freq: NEEDED Status: Active Protocol: Document 02/23/23 09:22 AB (Rec: 02/23/23 09:40 AB [id number]) Medical Review Prior Functional Status Medical History Reviewed Yes Diet/Fluid Consistency Regular Communication Pt is able to express all needs. Mobility and Gait IND at PLOF Activities of Daily Living and IADL's IND with all ADLs and IADLs. Social History Household Members friend(s),none Living Arrangements House Number of Floors (Floors) One Floor Number of Stairs To Enter/Railing? 1 ALANNA Home Environment Standard Height Toilet,Walk in Shower,Built-In Shower Seat Home Equipment Hand Held Shower,Grab Bars In Shower Additional Social History Comment Pt lives alone but daughter lives near by. M2 PT-IP Current Condition Start: 02/23/23 09:22 Freq: NEEDED Status: Active Protocol: Document 02/23/23 09:22 AB (Rec: 02/23/23 09:40 AB [id number]) Physical Therapy Current Condition Current Condition Evaluation Date 02/23/23 Treatment Diagnosis gait abnormalities, difficulty in walking Onset Date 02/22/23 M3 PT-IP Subjective Start: 02/23/23 09:22 Freq: NEEDED Status: Active Protocol: Document 02/23/23 09:22 AB (Rec: 02/23/23 09:40 AB [id number]) Subjective Physical Therapy Visit Type Type Initial Evaluation Visit Start Time 08:59 Visit Stop Time 09:19 Total Visit Minutes 20 Physical Therapy Visit Comments Patient Comments Pt presents in bed and is agreeable to PT evaluation. He denies any symptoms currently . Therapy Pain Assessment Pain When Pain Assessed At Rest Pain Present Pain Present Denied Pain M4 PT-IP Mobility and Gait Start: 02/23/23 09:22 Freq: NEEDED Status: Active Protocol: Document 02/23/23 09:22 AB (Rec: 02/23/23 09:40 AB [id number]) PT-Bed Mobility Assessment Rolling Level of Assist Independent Supine to Sit Supine to Sit Independent Sit to Supine Sit to Supine Independent Scooting Scooting to Edge of Bed Independent PT-Transfer Assessment Sit to and From Stand Sit to and from Stand Independent Equipment Transfer Assistive Device Gait Belt Transfers Transfer Destination Bed Transfer Technique ambulated Transfer Ability Level of Assist Independent Comments Mobility Comments The pt was able to perform all bed mobility with independence and no instances of LOB or instability noted. BP was taken in supine, sitting and standing, and remained stable throughout, with the pt denying symptoms of dizziness. The pt ambulated 250ft with independence, and was able to ascend/descend 9 steps with independence. Once back in room, PT performed additional functional tests as below. At end of session, pt returned to bed and RT was in room to perform treatment. RN was notified of findings. Gait Assessment Gait Gait Assistance Required: Independent Distance (Feet) 250 Able to Maintain Weight Bearing Status Yes During Gait Assistive Devices Assistive Device Gait Belt Gait Deviations General Gait Pattern Antalgic Comments Gait Comments The pt presents with slightly antalgic gait, though he reports he feels stiffer in the mornings due to a history of RLE injuries/fractures. No unsteadiness, imbalance or ataxia noted during this evaluation. Stair Climbing Assessment Evaluation Level of Assist On Stairs Independent Devices Stair Climbing Assistive Devices Right Railing Technique/Endurance Stair Climbing Direction Ascend and Descend Stair Climbing Technique Step Over Step Number of Steps Climbed 9 Query Text: Stair Climbing Set # Repetitions (reps) 1 Comments Stair Climbing Comments Pt is able to perform stairs with step over step pattern independently, and again no sign of instability. PT-Balance Assessment Sitting Balance and Reactions Static Sitting Balance Ability Normal Dynamic Sitting Balance Ability Normal Standing Balance and Reactions Static Standing Balance Ability Normal Dynamic Standing Balance Ability Normal Balance Tests Romberg 30 sec in all conditions; no abnormal sway Functional Assessments Other Functional Tests Performed Pt able to squat to pickup driver object from floor independently, without LOB or instability. M5 PT-IP Objective Assessments Start: 02/23/23 09:22 Freq: NEEDED Status: Active Protocol: Document 02/23/23 09:22 AB (Rec: 02/23/23 09:40 AB [id number]) Orientation Orientation/Cognition Level of Alertness Alert Orientation Name,Age,Birthday,Month,Date, Year,Day of Week,Place, Situation Language Function Ability No Deficits Noted Safety Awareness Understands Safety Issues Memory Description No Deficits Noted Gross Range of Motion Upper Extremity ROM Assessment Within Functional Limits Lower Extremity ROM Assessment Within Functional Limits Strength Upper Extremity Strength Assessment Within Functional Limits Lower Extremity Strength Assessment Within Functional Limits Comments Strength Comments Gross BLE strength 5/5 M6 PT-IP Treatment Start: 02/23/23 09:22 Freq: NEEDED Status: Active Protocol: Document 02/23/23 09:22 AB (Rec: 02/23/23 09:40 AB [id number]) Physical Therapy Treatment Education Education Provided Safety Brace Education Patient M7 PT-IP Assessment and Plan Start: 02/23/23 09:22 Freq: NEEDED Status: Active Protocol: Document 02/23/23 09:22 AB (Rec: 02/23/23 09:40 AB [id number]) PT Summary Assessment and Plan Potential Rehabilitation Potential Excellent Status of Condition at Evaluation Stable Summary Impairments ROM,Gait Assessment Summary Yordy Triplett is a 67 year old male patient presenting with gait abnormalities and difficulty in walking on . Today's PT evaluation revealed the pt is independent with all functional mobility without use of AD and functional test performed, including ambulation and stairs. He also demonstrated no abnormal sway when performing Romberg balance test in all conditions (normal CARA eyes open and eyes closed , narrow CARA eyes open and eyes closed). Testing performed did not reproduce the pt's symptoms, and did not cause any new symptoms. Based on his current level of function, PT recommends discharge to home, as he appears to be at his PLOF. PT will discharge the pt from skilled PT due to his high level of function, however PT should be consulted again if the pt has a change in status. Goals Bed Mobility Goal Independent Transfer Goal Independent Gait Goal Independent Gait Distance 500 Other Goals Pt to ambulate 500ft or more independently to show ability to ambulate community distances. Pt to ascend/descend 9 steps x2 with 1 hand rail and reciprocal pattern independently to show improving strength. Days to Meet Goals 10 Frequency of Treatment Frequency Of Treatment Discharge Treatment Plan Physical Therapy Treatment Plan Therapeutic Exercise,Balance Retraining,Neuromuscular Re-ed Recommendations To Nursing Amount of Assist Needed Independent Discharge Recommendations PT Discharge Recommendations Home Transportation Needs at Discharge Private Vehicle
[2023-02-23] MEDS: LOSARTAN 50 MG TABLET 100 MG PO (09:49)
[2023-02-23] MEDS: NIFEdipine 30 MG TAB ER 90 MG PO (09:49)
[2023-02-23] MEDS: hydroCHLOROthiazide 25 MG TABLET PO (09:50)
[2023-02-23] MEDS: ASPIRIN EC 81 MG TABLET PO (09:54)
--- NOTE | 2023-02-23 10:19 | PM.DS.1 ---
History of Present Illness History of Present Illness Date Patient Seen: 02/23/23 Time Patient Seen: 10:19 Chief complaint: gait issues Narrative: Per admitting provider, This is a 67 M with PMH of HTN, COPD, DAWIT who presented to the emergency room with lethargy, confusion, and slurred speech. Per his daughter, he called yesterday evening after taking a THC edible and sounded very off. His speech was slurred but she presumed it due to the edible. She checked in with him at 0700 this AM and he was still lethargic, with slurred speech. She did not notice weakness, numbness or facial droop. He is slowly improving according to daughter, but still remains lethargic and not his usual self. In the emergency room his vital signs were unremarkable, initial laboratory evaluation showed unremarkable CBC, chemistries showed a mild hyperemia with a sodium of 132 is otherwise unremarkable. A1c was 5.7%. CT and CTA were unremarkable. MRI performed already and was negative for acute ischemic infarcts. Ammonia was ordered and was negative. He was admitted for further evaluation. Discharge Providers Provider Date of admission: 02/22/23 12:02 Discharge Date: 02/23/23 Primary care physician: Ana Rosa Tucker MD Consults: 02/22/23 16:36 Consult to Occupational Therapy Evaluate & Treat Comment: Physician Instructions: Evaluate and treat Consult to Physical Therapy Evaluate & Treat Comment: Physician Instructions: Evaluate and Treat Discharge provider: Yair Jesus DO Summary Hospital Course Discharge Diagnosis: 1. Acute toxic, less likely metabolic encephalopathy 2.COPD without exacerbation 3. HTN 4. HLD Hospital Course: This is a 67 year old male with PMH of COPD, HTN, HLD who presented with slurred speech and word finding difficulties after consuming an edible. Symptoms continued for approximately 24 hours. He had a negative stroke evaluation including MRI, and echocardiogram also was unremarkable. His CO2 was elevated mildly, likely due to chronic COPD, but not significantly so. Ammonia level was normal as well. He already takes baby aspirin and statin therapy. The etiology after this extensive evaluation was most likely due to his edible as he improved to near his usual self prior to discharge. He was counseled on cautious use of edibles. No specific follow up is recommended after discharge and no medication changes are needed. Time Spent with Patient Time spent: Greater than 30 minutes Exam Vital Signs (past 8 hours): - 02/23/23 03:00 02/23/23 04:00 02/23/23 07:48 Temperature 97.9 F 97.6 F Pulse Rate 63 59 L Respiratory Rate 18 18 Blood Pressure 111/68 116/52 L Pulse Oximetry 98 95 95 Oxygen Delivery Method Room Air Oxygen Flow Rate 0 0 02/23/23 08:15 02/23/23 09:17 02/23/23 09:49 Temperature Pulse Rate 54 L 63 Respiratory Rate 14 Blood Pressure 136/79 Pulse Oximetry 95 95 Oxygen Delivery Method Room Air Room Air Oxygen Flow Rate Oxygen Delivery Method Room Air Oxygen Flow Rate 0 Narrative Exam Narrative: General:? Patient is well developed and well nourished, in no distress at this time. HEENT:? Normocephalic, atraumatic, extraocular muscles intact, oral pharynx is clear and mucous membranes are moist. Chest:? Normal AP diameter and contour without kyphoscoliosis, no tachypnea, equal chest rise bilaterally. Musculoskeletal:? Muscle strength and tone are equal within normal limits, no deformity. Extremities: No edema or joint effusions. No cyanosis or clubbing. Skin:? Pale,? Warm to touch,dry and intact without rashes, ulcerations or petechiae.? Neuro:? Alert and orientated x3,? sensation to touch intact in all extremities, no gross deficits noted of cranial nerves. Psych:? Patient has a well-kept appearance, appropriate affect, mental status attitude thought context and judgment are appropriate for age. Objective Labs 02/23/23 05:12 02/23/23 05:12 Labs: Laboratory Results - last 24 hr 02/22/23 02/22/23 02/22/23 09:21 14:30 16:32 WBC RBC Hgb Hct MCV MCH MCHC RDW Plt Count Neut % (Auto) Lymph % (Auto) Benton % (Auto) Eos % (Auto) Baso % (Auto) Neut # (Auto) Lymph # (Auto) Benton # (Auto) Eos # (Auto) Baso # (Auto) VBG pH 7.37 VBG pCO2 49.7 VBG pO2 39 VBG HCO3 29 H VBG Total CO2 31 H VBG O2 Saturation 71 VBG Base Excess 4.0 FiO2 21 Sodium Potassium Chloride Carbon Dioxide BUN Creatinine Estimated GFR BUN/Creatinine Ratio Glucose Hemoglobin A1c 5.7 Calcium Magnesium 2.1 Ammonia Triglycerides 48 Cholesterol 131 L LDL Cholesterol, Calc 62 HDL Cholesterol 59 TSH Urine Color Yellow Urine Appearance Clear Urine pH 6.5 Ur Specific Sparks <=1.005 Urine Protein Negative Urine Glucose (UA) Negative Urine Ketones Negative Urine Occult Blood Negative Urine Nitrate Negative Urine Bilirubin Negative Urine Urobilinogen 0.2 Ur Leukocyte Esterase Negative Urine RBC None seen Urine WBC None seen Ur Squamous Epith Cells None seen Urine Bacteria None seen Ur Culture Indicated? Cult not indicated 02/22/23 02/23/23 16:50 05:12 WBC 5.7 RBC 4.06 L Hgb 13.3 L Hct 38.0 L MCV 93.7 MCH 32.7 MCHC 34.9 RDW 13.0 Plt Count 263 Neut % (Auto) 57.6 D Lymph % (Auto) 30.3 Benton % (Auto) 8.2 Eos % (Auto) 3.4 Baso % (Auto) 0.5 Neut # (Auto) 3300 Lymph # (Auto) 1700 Benton # (Auto) 500 Eos # (Auto) 200 Baso # (Auto) 0 VBG pH VBG pCO2 VBG pO2 VBG HCO3 VBG Total CO2 VBG O2 Saturation VBG Base Excess FiO2 Sodium 136 L Potassium 3.9 Chloride 102 Carbon Dioxide 28 BUN 10 Creatinine 0.74 Estimated GFR > 60 BUN/Creatinine Ratio 13.5 Glucose 93 Hemoglobin A1c Calcium 9.3 Magnesium 2.1 Ammonia < 9 L Triglycerides Cholesterol LDL Cholesterol, Calc HDL Cholesterol TSH 0.94 Urine Color Urine Appearance Urine pH Ur Specific Sparks Urine Protein Urine Glucose (UA) Urine Ketones Urine Occult Blood Urine Nitrate Urine Bilirubin Urine Urobilinogen Ur Leukocyte Esterase Urine RBC Urine WBC Ur Squamous Epith Cells Urine Bacteria Ur Culture Indicated? [facility] Medical History COPD (chronic obstructive pulmonary disease) HTN (hypertension) Obstructive sleep apnea Surgical History History of appendectomy Social History household members: none Smoking Status: Never smoker alcohol intake: current Discharge Plan Discharge Plan Patient Disposition: Home Provider Discharge Comment: You were admitted to the hospital with slurred speech. MRI was normal. After ruling out multiple etiologies, it was likely due to an edible that you took. No medication changes are needed. Discharge orders & Medications Prescriptions: Continued simvastatin [Zocor] 5 MG tablet 5 mg PO HS Qty: 0 losartan 100 MG tablet 100 mg PO QDAY Qty: 0 fluticasone propion-salmeterol [Advair Diskus] 250 MCG/50 MCG blister with device 1 puff INH BID Qty: 0 aspirin 81 MG tablet,chewable 81 mg PO QDAY Qty: 0 Fish Oil (Fish Oil 500 MG Softgel) 500 mg PO QDAY Qty: 0 nifedipine 90 mg tablet extended release 90 mg PO DAILY sildenafil 100 mg tablet 100 mg PO DAILY hydrochlorothiazide 25 mg tablet 25 mg PO DAILY Spiriva Respimat 2.5 mcg/actuation Mist 2 puff INHALATION DAILY Medication counseling provided by Pharmacist: Yes Follow up/Referrals: Ana Rosa Tucker MD [Primary Care Provider] - As previously scheduled Diet/Activity/Treatments Diet: Diet as Tolerated and Regular Activity: As tolerated, no restrictions Visit Report/Discharge Packet Instructions: DI for Transient Ischemic Attack, How to Prevent Falls Stand Alone Forms: Patient Portal/API, Stroke Signs & Symptoms Discharge Data Primary Care Provider: Ana Rosa Tucker Attending Provider: Yair Jesus Admit Date/Time: 02/22/23 12:02 Quality VTE Deep Vein Thrombosis/Pulmonary Embolism Present on Admission: No
--- NOTE | 2023-02-23 10:29 | CM.DANOTE ---
DCP Assessment Note Patient is a 67yo M here following some lethargy, confusion, and slurred speech. PCP Gurinder Vargas Payer Medicare and for Life CHAIRMAN CEO reviewed EMR. Per PT, rec home for d/c. CHAIRMAN CEO entered room and introduced self and role. Patient accompanied by daughter Raven ([phone]) at bedside. DPOA is Sister Rosalinda (ph [phone]) who lives in [place]. Patient is IADLs/drives at baseline. No DME but has access to cane/walker if needed. Dtr lives down the road and can help with him as needed. Dtr will be ride home. Patient reports no needs at this time from CM team. Is eager to d/c home. Plan: home when stable, likely today. transport with dtr in POV. No needs identified at this time. CM team will continue to follow as needed. ZAIDA Hunter Discharge Planning/Care Management CM Discharge Assessment Start: 02/23/23 10:27 Freq: Status: Active Protocol: Document 02/23/23 10:27 SL (Rec: 02/23/23 10:29 [id number]) Discharge Planning Assessment Assigned Certified Athletic Trainer ZIADA Barrientos DPOA/Assigned Designee Name Raven Merino (daughter) Contact Information [phone] Advance Directives? No History Provided By Patient,Medical Record Prior Living Arrangements House Household Members none Type of transporation used prior to Drives own vehicle admit Independent with ADL's Yes Is patient alert and oriented? Yes DME Already Rented / Owned FWW / Walker,Cane Comment has access to cane and walker but does not use Barriers to Discharge No Discharge Plan Home Transportation Arrangement daughter in POV Whiteboard Updated in Patient Room with Yes name and ext. # of Certified Athletic Trainer Review Status In Process Next Review Type Continued Stay Review
== END 2023-02-23 11:30 | disposition home or self-care (01) ==
LOC: ED 11:50 → AC 12:03
PROVIDERS: Admitting Provider Internal Medicine; Emergency Provider Emergency Medicine; Family Provider Internal Medicine; PCP Internal Medicine; Referring Provider Emergency Medicine; Visit Provider Internal Medicine
DX: G92.9 Unspecified toxic encephalopathy (principal); R26.81 Unsteadiness on feet; R29.702 NIHSS score 2; I10 Essential (primary) hypertension; J44.9 Chronic obstructive pulmonary disease, unspecified; G47.33 Obstructive sleep apnea (adult) (pediatric); E78.5 Hyperlipidemia, unspecified
CPT/HCPCS: 0241U; 36415; 70450; 70496; 70498; 70551; 80048; 80053; 80061; 80320; 81001; 82140; 82805; 83036; 83690; 83735; 84443; 85025; 93005; 93306; 94640; 94760; 97161; 99284; G0378